=== PATIENT | female | born 1990 | race African-American/Black ===

== ENCOUNTER 2024-10-28 06:27 | Emergency (ER) | payer BC ==
[~2024-10-28] VITALS: Ht 165.1 cm; Wt 61.2 kg
[2024-10-28] MEDS ORDERED: FAMOTIDINE/PF INJ 20 MG/2 ML VIAL IV ONE (06:55)
[2024-10-28] MEDS ORDERED: methylPREDNISolone SOD SUCC 125 MG/2ML VIAL ONE (06:55)
[2024-10-28] MEDS ORDERED: diphenhydrAMINE HCL 50 MG/ML VIAL ONE (06:55)
[2024-10-28] MEDS ORDERED: ONDANSETRON HCL/PF 4 MG/2 ML VIAL ONE (06:55)
[2024-10-28] MEDS: IV NS 0.9% 1,000 ML BAG IV ONE (07:00)
[2024-10-28] MEDS: diphenhydrAMINE HCL 50 MG/ML VIAL IV ONE (07:00)
[2024-10-28] MEDS: methylPREDNISolone SOD SUCC 125 MG/2ML VIAL IV ONE (07:00)
[2024-10-28] MEDS: FAMOTIDINE/PF INJ 20 MG/2 ML VIAL IV ONE (07:00)
[2024-10-28] MEDS: ONDANSETRON HCL/PF 4 MG/2 ML VIAL IVP ONE (07:00)
[2024-10-28 07:25] LABS: CALCIUM, SERUM 8.6 mg/dL (8.5-10.1); CREATININE 0.7 mg/dL (0.6-1.3); POTASSIUM 3.6 mmol/L (3.5-5.1)
[2024-10-28 07:26] LABS: BASOPHILS % (AUTO) 0.1 % (0.0-2.0); EOSINOPHILS # (AUTO) 0.1 K/uL (0.0-0.7); EOSINOPHILS % (AUTO) 0.8 % (0.0-6.0); HEMATOCRIT 35 % (33-45); HEMOGLOBIN 11.5 g/dL (11.5-14.8); LYMPHOCYTES # (AUTO) 1.3 K/uL (0.8-4.8); LYMPHOCYTES % (AUTO) 12.1 % (20.0-44.0); MEAN CORPUSCULAR HEMOGLOBIN 27 PG (26.0-33.0); MEAN CORPUSCULAR HGB CONC 33 g/dl (31.0-36.0); MEAN CORPUSCULAR VOLUME 81 fL (82-100); MONOCYTES # (AUTO) 0.4 K/uL (0.1-1.30); MONOCYTES % (AUTO) 3.5 % (2.0-12.0); NEUTROPHILS # (AUTO) 9.1 K/uL (1.8-8.9); NEUTROPHILS % (AUTO) 83.5 % (43.0-81.0); PLATELET COUNT (AUTO) 339 K/uL (150-450); RED BLOOD CELL COUNT(AUTO) 4.29 MIL/uL (4.0-5.2); RED CELL DISTRIBUTION WIDTH 16.4 % (11.5-15.0); WHITE BLOOD COUNT (AUTO) 10.8 K/uL (4.3-11.0)
[2024-10-28] MEDS ORDERED: HYDR-500 PO (08:53)
[2024-10-28] MEDS ORDERED: PRED20TA PO (08:53)
[2024-10-28] MEDS ORDERED: ONDA4TAB11 PO (08:53)
[2024-10-28 09:52] VITALS: BP 110/65; TEMP 98.1; O2SAT 100
== END 2024-10-28 09:53 | disposition home or self-care (01) ==
LOC: ER 06:31
DX: L50.1 Idiopathic urticaria (principal); R10.9 Unspecified abdominal pain; R11.2 Nausea with vomiting, unspecified; R19.7 Diarrhea, unspecified; R22.0 Localized swelling, mass and lump, head; R10.2 Pelvic and perineal pain; Z79.52 Long term (current) use of systemic steroids; Z88.0 Allergy status to penicillin; Z88.1 Allergy status to other antibiotic agents
CPT/HCPCS: 99285; 96374; 96375; 96361; 85025; 80048; 36415; 84702; J1200; J3490; J2919; J2405; J7030